=== PATIENT | female | born 1970 | race Caucasian/White ===

== ENCOUNTER 2018-10-08 13:42 | Emergency (ER) | payer OTHER ==
[~2018-10-08] VITALS: Ht 165.1 cm; Wt 92.1 kg
== END 2018-10-08 19:54 | disposition home or self-care (01) ==
LOC: ER 13:42
DX: J11.1 Influenza due to unidentified influenza virus with other respiratory manifestations (principal)

== ENCOUNTER 2022-09-05 08:07 | Outpatient (CLI) | payer OTHER | END 2022-09-05 08:16 | disposition home or self-care (01) | LOC: RX STUDY 08:07 | PROVIDERS: ATTEND Internal Medicine Gastroenterology | DX: K21.9 Gastro-esophageal reflux disease without esophagitis (principal) ==